=== PATIENT | female | born 1945 | race Caucasian/White ===

== ENCOUNTER 2016-08-13 09:45 | Outpatient (RCR) | payer MEDICARE, OTHER | END 2016-08-27 | disposition home or self-care (01) | LOC: PTY 09:45 | DX: M17.0 Bilateral primary osteoarthritis of knee (principal); M16.9 Osteoarthritis of hip, unspecified; M12.9 Arthropathy, unspecified; M54.41 Lumbago with sciatica, right side; M25.532 Pain in left wrist; M25.531 Pain in right wrist; M79.1 Myalgia | CPT/HCPCS: 97032; 97110; 97140; 97162; G0283; G8978; G8979 ==